=== PATIENT | female | born 1975 | race Caucasian/White ===

== ENCOUNTER 2018-06-17 10:53 | Emergency (ER) | payer MEDICAID, OTHER ==
[~2018-06-17] VITALS: Ht 162.6 cm; Wt 73.8 kg
[2018-06-17 11:14] VITALS: BP 138/69
== END 2018-06-17 12:41 | disposition home or self-care (01) ==
LOC: ER 10:54
DX: L03.111 Cellulitis of right axilla (principal); L02.411 Cutaneous abscess of right axilla
CPT/HCPCS: 99284

== ENCOUNTER 2018-07-09 23:27 | Emergency (ER) | payer MEDICAID, OTHER ==
[~2018-07-09] VITALS: Ht 162.6 cm; Wt 77.0 kg
[2018-07-10] MEDS ORDERED: dexamethasone sod phosphate 10mg/ml inj PO STA (00:44)
[2018-07-10] MEDS ORDERED: ipratropium/albuterol 3ml nebule NEB PRN ×2 (00:45→01:40)
[2018-07-10] MEDS ORDERED: DEC4T PO (01:42)
[2018-07-10] MEDS ORDERED: ipratropium/albuterol 3ml nebule NEB ONE (02:10)
[2018-07-10 02:42] VITALS: BP 132/81
== END 2018-07-10 02:44 | disposition home or self-care (01) ==
LOC: ER 23:29
DX: R05 Cough (principal); R06.00 Dyspnea, unspecified; J45.909 Unspecified asthma, uncomplicated; F17.200 Nicotine dependence, unspecified, uncomplicated
CPT/HCPCS: 94640; 94760; 99283; J1100